=== PATIENT | female | born 1940 | race Caucasian/White ===

== ENCOUNTER 2017-03-21 10:31 | Outpatient (CLI) | payer OTHER ==
--- NOTE | 2017-03-21 11:08 | DIAGNOSTIC IMAGING REPORT ---
PROCEDURE: DEXA BONE DENSITY STUDY CLINICAL INDICATION: POSTMENOPAUSAL COMPARISON: DEXA 09/21/2006 FINDINGS: LUMBAR SPINE: Bone mineral density 0.916 g/cm2, T score -1.2 osteopenia which represents a 4.9% decrease from the previous study LEFT HIP: Bone mineral density 0.861 g/cm2, T score -0.7 normal but this does represent a 15.3% decrease in bone mineral density since the previous study LEFT FEMORAL NECK: Bone mineral density 0.632 g/cm2, T score -2.0 osteopenia which represents a 14.7% decrease in bone mineral density since the previous study FRACTURE RISK CALCULATION ( when applicable): 10-year fracture risk of a major osteoporotic fracture 18% and of a hip fracture 4% (T score greater or equal to -1.0 to: NORMAL) (T score from -1.1 to -2.4: OSTEOPENIA) (T score ess than or equal to -2.5: OSTEOPOROSIS) IMPRESSION: 1. Osteopenia lumbar spine and femoral neck with bone mineral density decreases of 4.9% and 14.7% respectively
== END 2017-03-21 23:00 ==
LOC: XR SRH 10:31
DX: M85.88 Other specified disorders of bone density and structure, other site (principal); Z78.0 Asymptomatic menopausal state